=== PATIENT | female | born 1985 | race Caucasian/White ===

== ENCOUNTER 2018-07-20 10:50 | Outpatient (CLI) | payer OTHER | END 2018-07-20 10:51 | disposition home or self-care (01) | LOC: DTY/OP 10:50 | PROVIDERS: ATTEND Surgery | DX: E66.01 Morbid (severe) obesity due to excess calories (principal) | CPT/HCPCS: 97802 ==

== ENCOUNTER 2018-08-14 10:54 | Outpatient (CLI) | payer OTHER | END 2018-08-14 10:55 | disposition home or self-care (01) | LOC: DTY/OP 10:54 | PROVIDERS: ATTEND Surgery | DX: E66.01 Morbid (severe) obesity due to excess calories (principal) | CPT/HCPCS: 97802 ==

== ENCOUNTER 2018-09-17 08:54 | Outpatient (CLI) | payer OTHER | END 2018-09-17 08:55 | disposition home or self-care (01) | LOC: DTY/OP 08:54 | PROVIDERS: ATTEND Specialist | DX: E66.01 Morbid (severe) obesity due to excess calories (principal) | CPT/HCPCS: 97802 ==

== ENCOUNTER 2018-11-06 01:49 | Outpatient (CLI) | payer OTHER ==
--- NOTE | 2018-11-06 09:30 | RAD ---
2 views of the chest: 11/06/2018 COMPARISON: None HISTORY: Preoperative patient FINDINGS: No pneumothorax, pleural effusion, focal consolidation, or alveolar edema. Heart and medias tinal contours are grossly unremarkable. Pression: No acute findings.
[2018-11-06 09:39] LABS: #Eosinphils 0.2 thou/uL (0.0-0.7); #Lymphocytes 2.2 thou/uL (1.20-3.40); #Monocytes 0.7 thou/uL (0.11-0.59); #Neutrophils 6.8 thou/uL (1.40-6.50); %Basophils 0.1 % (0.0-1.0); %Eosinophils 1.9 % (0.0-10.0); %Lymphocytes 22.3 % (21.0-51.0); %Monocytes 6.9 % (0.0-10.0); %Neutrophils 68.8 % (42.0-75.0); Hemoglobin 13.7 g/dL (12.0-16.0); Mean Corpuscular HGB CONC 33.5 g/dL (32.0-36.0); Mean Corpuscular Hemoglobin 29.4 pg (27.0-31.0); Mean Corpuscular Volume 87.7 fL (78.0-98.0); Mean Platelet Volume 6.4 fL (7.4-10.4); Platelet Count 300 thou/uL (130-400); Red Blood Cell (RBC) Count 4.66 mill/uL (4.20-5.40); White Blood Cell (WBC) Count 9.8 thou/uL (4.8-10.8)
[2018-11-06 09:43] LABS: BHCG - Serum Negative (NEGATIVE); Pregs Control Background? CLEAR/WHITE (CLR/WHITE); Pregs Control Bar Appear? YES (CONTROL BAR)
[2018-11-06 09:49] LABS: Hemoglobin A1c 5.3 % (4.0-6.0)
[2018-11-06 09:59] LABS: ALT (SGPT) 19 U/L (8-55); AST (SGOT) 14 U/L (5-34); Albumin 4.5 g/dL (3.5-5.0); Alkaline Phosphatase 65 U/L (40-150); Anion Gap 17 mmol/L (10-20); BUN (Urea Nitrogen) 16 mg/dL (7.0-18.7); Bilirubin, Direct 0.2 mg/dL (0.1-0.3); Bilirubin, Total 0.4 mg/dL (0.2-1.2); Calc. Creatinine Clearance 0 mL/min (70-130); Calcium 9.7 mg/dL (7.8-10.44); Carbon Dioxide 22 mmol/L (22-29); Chloride 103 mmol/L (98-107); Estimated GFR-MDRD 90; Globulin 2.9 g/dL (2.4-3.5); Glucose 103 mg/dL (70-105); Potassium 3.7 mmol/L (3.5-5.1); Protein, Total 7.4 g/dL (6.0-8.3); Sodium 138 mmol/L (136-145)
== END 2018-11-06 01:50 | disposition home or self-care (01) ==
LOC: LABBT 01:49
PROVIDERS: ATTEND Surgery
DX: Z01.818 Encounter for other preprocedural examination (principal); E66.01 Morbid (severe) obesity due to excess calories
CPT/HCPCS: 71046; 80053; 80076; 83036; 84703; 85025; 93005; 93010

== ENCOUNTER 2018-11-06 08:30 | Inpatient (IN) | payer OTHER ==
[2018-11-06 08:45] VITALS: BMI 49.2
[2018-11-15] MEDS ORDERED: Heparin 5,000 UNITS/ML VIAL ONE (08:00)
[2018-11-15] MEDS ORDERED: Bupivacaine/Epinephrine 0.25% 30 ML VIAL ONE ×2 (08:36→08:37)
[2018-11-15] MEDS ORDERED: Fentanyl 100 MCG/2 ML VIAL ONE ×3 (09:03→11:04)
[2018-11-15] MEDS ORDERED: Adenosine 6 MG/2 ML VIAL ONE (09:28)
[2018-11-15] MEDS ORDERED: Promethazine HCl 25 MG/ML VIAL ONE (10:26)
[2018-11-15] MEDS ORDERED: Meperidine HCl/PF 25 MG/ML VIAL SLOW IVP PRN (10:37)
[2018-11-15] MEDS ORDERED: Ondansetron HCl/PF 4 MG/2 ML Vial IVP PRN (10:37)
[2018-11-15] MEDS ORDERED: Promethazine HCl 25 MG/ML VIAL SLOW IVP PRN (10:37)
[2018-11-15] MEDS ORDERED: diphenhydrAMINE 25 MG CAP PO PRN (10:55)
[2018-11-15] MEDS ORDERED: Promethazine HCl 25 MG/ML VIAL IM PRN ×2 (10:55→13:18)
[2018-11-15] MEDS ORDERED: diphenhydrAMINE 50 MG/ML VIAL IVP PRN ×2 (10:55→13:18)
[2018-11-15] MEDS ORDERED: Morphine CADD 1 MG/ML CADD IVPB PRN (10:55)
[2018-11-15] MEDS ORDERED: Ketorolac Tromethamine 30 MG/ML VIAL IVP PRN (10:55)
[2018-11-15] MEDS ORDERED: Naloxone HCl 0.4 mg/ml Vial IV PRN (10:55)
[2018-11-15] MEDS ORDERED: diphenhydrAMINE 50 MG/ML VIAL IM PRN (10:55)
[2018-11-15] MEDS ORDERED: Communication Order-Pharmacy FS SCH (11:00)
[2018-11-15] MEDS ORDERED: Morphine Sulfate 100 MG in Dextrose 5% in Water 98 ML IV PRN (11:13)
[2018-11-15] MEDS ORDERED: D5 1/2 NS w/20 mEq KCL 1,000 ML ONE (12:28)
[2018-11-15] MEDS ORDERED: hydrALAZINE 20 MG/ML VIAL SLOW IVP PRN (13:18)
[2018-11-15] MEDS ORDERED: Ondansetron PF 4 MG/2 ML Vial IVP PRN (13:18)
[2018-11-15] MEDS ORDERED: Dextrose 50% Abboject 50 ML SYRINGE SLOW IVP PRN (13:18)
[2018-11-15] MEDS ORDERED: Hydrocodone-Acetamin 15 ML UDCUP PO PRN (13:18)
[2018-11-15] MEDS ORDERED: Dextrose 5% in Water 1,000 ML IV PRN (13:18)
[2018-11-15] MEDS ORDERED: Acetaminophen 1,000 MG in Premix Bag 1 BAG IVPB SCH (13:30)
[2018-11-15] MEDS: Ondansetron PF 4 MG/2 ML Vial IVP PRN (16:29)
[2018-11-15] MEDS: D5 1/2 NS w/20 mEq KCL 1,000 ML IV SCH ×2 (17:40→23:19)
--- NOTE | 2018-11-15 19:01 | OP ---
DATE OF PROCEDURE: 11/15/2018 PREOPERATIVE DIAGNOSIS: Morbid obesity with a body mass index of 50. POSTOPERATIVE DIAGNOSIS: Morbid obesity with a body mass index of 50. PROCEDURES PERFORMED: 1. Laparoscopic sleeve gastrectomy with [place] staple line reinforcements and 38-[place] bougie. 2. Esophagogastroduodenoscopy. ANESTHESIA: General. ESTIMATED BLOOD LOSS: 50 mL. COMPLICATIONS: None. FINDINGS: Normal postoperative EGD. TECHNIQUE: The patient was taken to the operating room and laid supine on the operating room table. After general anesthetic was obtained, the arms and legs were double strapped to bariatric table. The abdomen was prepped and draped in a sterile fashion. Left subcostal 5-mm Optiview trocar was placed in the usual fashion and high-flow pneumoperitoneum was obtained. Right and left abdominal 12-mm ports as well as right subcostal 5-mm port were placed under direct visualization. Gallbladder was retracted from the 5-mm port that was made at the xiphoid, and a Ned was used to raise the liver off the GE junction. Short gastrics were taken down to a distance of 6-cm proximal to the pylorus all the way up to the left ziyad of diaphragm. Left ziyad, posterior fundus, and angle of His were completely dissected. There was no hiatal hernia. OG tube was removed, and a 38-bougie was brought in with its tip left in the antrum of the stomach. Multiple loads of Ellis stapler were used to perform the sleeve. The first was fired up at a distance of 5-cm proximal to the pylorus, angled up towards the incisura. Care was taken to avoid being too close to incisura. Multiple loads were then fired up along the bougie. Stomach was completely transected at the angle of His. The stomach was removed from the left abdominal incision. This fascial defect was closed using GraN[place] needle and 0 Vicryl tie. All port sites were infiltrated using local anesthetic. EGD scope was passed through esophagus stomach to the level of duodenum without obstruction, withdrawn all the way to the pylorus without evidence of stenosis at the incisura. There was no involvement of the staple line at the GE junction. There was no air leakage or bleeding along the staple line. EGD scope was used to decompress the stomach, it was pulled and removed. Ned retractor was removed under direct visualization without bleeding. All port sites were removed under camera visualization, and pneumoperitoneum was let down. Vicryl was used to close the fascial defect from the left abdominal incisions. All incisions were irrigated and closed using 4-0 Monocryl and Dermabond. The patient was sent to Recovery in stable condition. All instrument counts, needle counts, lap counts were correct. Job ID: [id number]
[2018-11-15] MEDS ORDERED: Enoxaparin Sodium 40 MG/0.4 ML SYRINGE SC SCH (21:00)
[2018-11-15] MEDS: Acetaminophen 1,000 MG in Premix Bag 1 BAG IVPB SCH (21:47)
[2018-11-16] MEDS: Acetaminophen 1,000 MG in Premix Bag 1 BAG IVPB SCH ×2 (04:24→09:13)
[2018-11-16] MEDS: Ondansetron PF 4 MG/2 ML Vial IVP PRN (04:28)
[2018-11-16 06:07] LABS: #Monocytes 1.6 thou/uL (0.11-0.59); #Neutrophils 12.1 thou/uL (1.40-6.50); %Basophils 0.2 % (0.0-1.0); %Eosinophils 0.1 % (0.0-10.0); %Lymphocytes 12.5 % (21.0-51.0); %Monocytes 10.3 % (0.0-10.0); %Neutrophils 76.9 % (42.0-75.0); Hemoglobin 13.2 g/dL (12.0-16.0); Mean Corpuscular HGB CONC 33.2 g/dL (32.0-36.0); Mean Corpuscular Hemoglobin 29.2 pg (27.0-31.0); Mean Corpuscular Volume 87.8 fL (78.0-98.0); Mean Platelet Volume 6.8 fL (7.4-10.4); Platelet Count 287 thou/uL (130-400); Red Blood Cell (RBC) Count 4.53 mill/uL (4.20-5.40); White Blood Cell (WBC) Count 15.7 thou/uL (4.8-10.8)
[2018-11-16 06:23] LABS: Anion Gap 12 mmol/L (10-20); BUN (Urea Nitrogen) 5 mg/dL (7.0-18.7); Calc. Creatinine Clearance 295 mL/min (70-130); Calcium 9.1 mg/dL (7.8-10.44); Carbon Dioxide 23 mmol/L (22-29); Chloride 103 mmol/L (98-107); Estimated GFR-MDRD Greater than 90; Glucose 115 mg/dL (70-105); Potassium 3.7 mmol/L (3.5-5.1); Sodium 134 mmol/L (136-145)
[2018-11-16 07:25] VITALS: BP 136/89; TEMP 98
--- NOTE | 2018-11-16 08:18 | PDOC.GSPN ---
Surgery Progress Note: Subj - Subjective Patient reports: no new complaints, pain well controlled, tolerating liquids well, voiding w/o difficulty, nausea Narrative: Ms. Grigsby is doing very well post-op. States yesterday "was rough" and had a lot of nausea, however it is much better today. Has not had a bowel movement, but has urinated once without difficulty. Pain is 5/10 compared to 7/10 yesterday. She mentions some constant epigastric pain and discomfort, but otherwise feels well. She denies vomiting, dizziness, headaches, shortness of breath, palpitations, or reflux. She has only consumed water since surgery. Will attempt other liquids this morning. She has done very well with ambulating. Got up about 6 times yesterday and walking well. Surgery Progress Note: Obj - Vital signs Vital signs: Vital Signs - Most Recent Temp Pulse Resp BP Pulse Ox 98.0 F 71 18 136/89 100 11/16/18 07:24 11/16/18 07:24 11/16/18 07:24 11/16/18 07:24 11/16/18 07:24 - Physical Exam General: no distress ENT: normal mucosa Neck: no lymphadectomy, no masses Cardiovascular: regular rate and rhythm (No gallops or murmurs.) Respiratory: clear to auscultation, normal expansion, normal respiratory effort Abdomen: soft, positive bowel sounds (Bowel sounds present and active. No abdominal bruits.), appropriately tender Wound: healing well (Incision sites healing well without signs of erythema, bleeding, or infection.) Surgery Progress Note: Results - Labs Result Diagrams: 11/16/18 05:28 11/16/18 05:28 Lab results: Laboratory Results - last 24 hr 11/16/18 11/16/18 05:28 05:28 WBC 15.7 H RBC 4.53 Hgb 13.2 Hct 39.8 MCV 87.8 MCH 29.2 MCHC 33.2 RDW 12.0 Plt Count 287 MPV 6.8 L Neutrophils % 76.9 H Lymphocytes % 12.5 L Monocytes % 10.3 H Eosinophils % 0.1 Basophils % 0.2 Neutrophils # 12.1 H Lymphocytes # 2.0 Monocytes # 1.6 H Eosinophils # 0.0 Basophils # 0.0 Sodium 134 L Potassium 3.7 Chloride 103 Carbon Dioxide 23 Anion Gap 12 BUN 5 L Creatinine 0.63 Estimated GFR (MDRD) Greater than 90 Glucose 115 H Calcium 9.1 Surgery Progress Note: A/P - Plan Plan: A/P Gastric Sleeve Procedure - Pain well managed. Will continue pain medicines as needed. - Ambulating well. Will continue walking and ambulating as tolerated. - Will assess how liquid diet is tolerated today in addition to water. - Monitor calcium level.
[2018-11-16] MEDS ORDERED: Pantoprazole 40 MG VIAL IVP SCH (09:00)
[2018-11-16] MEDS: D5 1/2 NS w/20 mEq KCL 1,000 ML IV SCH (09:12)
[2018-11-16] MEDS ORDERED: Hydrocodone-Acetamin 15 ML UDCUP PO PRN (09:37)
--- NOTE | 2018-11-16 23:25 | DIS ---
DATE OF ADMISSION: 11/15/2018 DATE OF DISCHARGE: 11/16/2018 ADMITTING DIAGNOSIS: Morbid obesity. DISCHARGE DIAGNOSIS: Morbid obesity. PROCEDURES PERFORMED: Sleeve gastrectomy by Dr. Santacruz without complication. CONDITION ON DISCHARGE: Improved. STAFF: Rock Santacruz MD HOSPITAL COURSE: The patient's postop course was uneventful. She is tolerating a diet. She is ambulatory. She is discharged home. She will follow up with me in 2 weeks. Job ID: [id number]
== END 2018-11-16 11:45 | disposition home or self-care (01) | DRG 621 ==
LOC: SURG A 11-15 06:56
PROVIDERS: ADMIT Surgery; ATTEND Surgery
PROC: 0DB64Z3 Excision of Stomach, Percutaneous Endoscopic Approach, Vertical (ICD-10-PCS; principal; 2018-11-15)
PROC: 0DJ08ZZ Inspection of Upper Intestinal Tract, Via Natural or Artificial Opening Endoscopic (ICD-10-PCS; 2018-11-15)
DX: E66.01 Morbid (severe) obesity due to excess calories (principal); Z68.43 Body mass index [BMI] 50.0-59.9, adult
CPT/HCPCS: 36415; 80048; 85025; 88307; 88312; C9113; J0131; J0153; J0690; J1644; J1650; J2274; J2405; J2550; J3010; J7070